=== PATIENT | male | born 1985 | race Caucasian/White ===

== ENCOUNTER 2020-12-06 11:46 | Emergency (ER) | payer OTHER ==
--- NOTE | 2020-12-06 12:12 | EDM.PDOC ---
ED HPI GENERAL MEDICAL PROBLEM - General Chief Complaint: Upper Extremity Injury/Pain Stated Complaint: FELL OFF ROOF, POSSIBLE BROKEN LT WRIST Time Seen by Provider: 12/06/20 11:55 Source of Information: Reports: Patient History Limitations: Reports: No Limitations - History of Present Illness INITIAL COMMENTS - FREE TEXT/NARRATIVE: 35-year-old male fell off a roof 1 hour ago landing initially on his feet but then backwards onto his wrists. He has a left wrist injury, some swelling and pain but no significant deformity. No other injury. Onset: Sudden Duration: Hour(s): (1 hour ago) Location: Reports: Upper Extremity, Left Quality: Reports: Sharp, Stabbing Worsens with: Reports: Movement Associated Symptoms: Reports: No Other Symptoms Left Wrist Pain Score (Numeric/FACES): 5 - Related Data Allergies Allergy/AdvReac Type Severity Reaction Status Date / Time amoxicillin Allergy Cannot Verified 12/06/20 11:57 Remember Home Meds: Home Meds NK [No Known Home Meds] 12/06/20 [History] Past Medical History HEENT History: Reports: Impaired Vision Musculoskeletal History: Reports: Fracture Other Musculoskeletal History: rib - Infectious Disease History Infectious Disease History: Reports: Chicken Pox Social & Family History - Tobacco Use Tobacco Use Status *Q: Current Every Day Tobacco User Years of Tobacco use: 15 Packs/Tins Daily: 0.5 Used Tobacco, but Quit: No Second Hand Smoke Exposure: Yes - Caffeine Use Caffeine Use: Reports: Energy Drinks - Alcohol Use Days Per Week of Alcohol Use: 7 Number of Drinks Per Day: 2 Total Drinks Per Week: 14 - Recreational Drug Use Recreational Drug Use: No Review of Systems - Review of Systems Review Of Systems: See Below Constitutional: Denies: Fever Respiratory: Denies: Shortness of Breath Cardiovascular: Denies: Chest Pain GI/Abdominal: Reports: No Symptoms Musculoskeletal: Reports: Other (Pain and swelling of the left wrist, especially dorsally over the distal radius) Skin: Denies: Bruising Neurological: Denies: Paresthesia ED EXAM, GENERAL - Physical Exam Exam: See Below Exam Limited By: No Limitations General Appearance: Alert, No Apparent Distress Head: Atraumatic Respiratory/Chest: No Respiratory Distress Extremities: Other (Rest of exam is limited to the left upper extremity, clavicle and shoulder are nontender. Elbow is nontender, he does have edema and point tenderness over the radial aspect of the wrist.) Course - Vital Signs Last Recorded V/S: Last Vital Signs Temp 97.0 F 12/06/20 12:03 Pulse 67 12/06/20 12:03 Resp 15 12/06/20 12:03 BP 122/89 12/06/20 12:03 Pulse Ox 96 12/06/20 12:03 - Orders/Labs/Meds Orders: Active Orders 24 hr Category Date Time Status DME for Discharge [COMM] Stat Oth 12/06/20 12:34 Ordered - Re-Assessments/Exams Free Text/Narrative Re-Assessment/Exam: 12/06/20 12:11 Patient's ring was removed from the ring finger, and a left wrist x-ray was obtained. 12/06/20 12:33 Left wrist x-ray confirms a fracture that extends into the joint space of the distal radius but very minimal if any displacement. Sugar tong splint was placed on the arm, and patient will keep his arm in sling overnight, take some anti-inflammatories and recheck with orthopedics tomorrow morning at 10 AM. Departure - Departure Time of Disposition: 12:48 Disposition: Home, Self-Care 01 Clinical Impression: Closed left radial fracture Qualifiers: Encounter type: initial encounter Radius location: distal Fracture morphology: other intra-articular Qualified Code(s): S52.572A - Other intraarticular fracture of lower end of left radius, initial encounter for closed fracture - Discharge Information Instructions: Radial Fracture Referrals: PCP,None [Primary Care Provider] - Forms: ED Department Discharge Care Plan Goals: Keep wrist in the splint and use sling for comfort. A regular dose of naproxen along with acetaminophen may be helpful, and recheck at Dr. Pratt's office tomorrow morning at 10 AM. Sepsis Event Note (ED) - Evaluation Sepsis Screening Result: No Definite Risk - Focused Exam Vital Signs: Vital Signs Temp Pulse Resp BP Pulse Ox 12/06/20 12:03 97.0 F 67 15 122/89 96 12/06/20 11:59 97.0 F 67 15 122/89 96 - My Orders Last 24 Hours: My Active Orders 12/06/20 12:34 DME for Discharge [COMM] Stat - Assessment/Plan Last 24 Hours: My Active Orders 12/06/20 12:34 DME for Discharge [COMM] Stat
--- NOTE | 2020-12-06 12:36 | CR ---
Wrist Comp Min 3V Lt CLINICAL HISTORY: Pain and swelling FINDINGS: There is a comminuted but minimally displaced fracture of the distal radius. Fracture line extends into the articular surface. Ulna appears intact IMPRESSION: Fracture distal radius
== END 2020-12-06 12:48 | disposition home or self-care (01) ==
LOC: JP.ED 11:46
DX: S52.572A Other intraarticular fracture of lower end of left radius, initial encounter for closed fracture (principal); Z88.0 Allergy status to penicillin; Z72.0 Tobacco use; W13.2XXA Fall from, out of or through roof, initial encounter
CPT/HCPCS: 29125; 73110-26-LT; 73110-LT; 99283-25